=== PATIENT | male | born 1995 | race Caucasian/White ===

== ENCOUNTER 2020-05-10 06:03 | Day surgery (SDC) | payer MEDICAID ==
[2020-05-06 12:49] LABS: BASOPHILS # (AUTO) 0.1 X10'3 (0-0.2); BASOPHILS % (AUTO) 0.8 % (0-1); EOSINOPHILS # (AUTO) 0.1 X10'3 (0-0.9); EOSINOPHILS % (AUTO) 1.2 % (0-6); LYMPHOCYTES # (AUTO) 2.2 X10'3 (1.1-4.8); LYMPHOCYTES % (AUTO) 34.2 % (21-51); MEAN CORPUSCULAR HEMOGLOBIN 31.4 PG (27.0-31.0); MEAN CORPUSCULAR HGB CONC 34.1 g/dL (33.0-36.5); MEAN CORPUSCULAR VOLUME 92.3 FL (78-98); MEAN PLATELET VOLUME 10.2 FL (7.4-10.4); MONOCYTES # (AUTO) 0.6 X10'3 (0-0.9); NEUTROPHILS # (AUTO) 3.5 X10'3 (1.8-7.7); NEUTROPHILS % (AUTO) 53.8 % (42-75); PRE OP HEMATOCRIT 48.9 % (42.0-52.0); PRE OP HEMOGLOBIN 16.7 g/dL (14.0-17.9); PRE OP PLATELET COUNT 217 X10'3 (140-440); RED CELL DISTRIBUTION WIDTH 12.5 % (11.5-14.5)
[2020-05-06 13:01] LABS: ALBUMIN 4.9 G/DL (3.4-5.0); ALBUMIN/GLOBULIN RATIO 1.3 (1.1-1.5); ALKALINE PHOSPHATASE 72 IU/L (46-116); BLOOD UREA NITROGEN 10 MG/DL (7-18); BUN/CREATININE RATIO 10.5 (5.4-32.0); CALCIUM 9.3 MG/DL (8.5-10.1); CHLORIDE 104 MMOL/L (99-107); CREATININE 0.95 MG/DL (0.60-1.10); PRE OP ALT 26 U/L (30-65); PRE OP ANION GAP 8 (8-16); PRE OP AST 15 U/L (10-37); PRE OP BILIRUB, TOTAL 0.5 MG/DL (0.0-1.0); PRE OP GLUCOSE 77 MG/DL (70-104); PRE OP POTASSIUM 4.1 MMOL/L (3.4-5.1); PRE OP SODIUM 141 MMOL/L (135-145); TOTAL CARBON DIOXIDE 29.5 MMOL/L (24-32); TOTAL PROTEIN 8.8 G/DL (6.4-8.2); eGFR > 90 ML/MIN
[2020-05-10] VITALS (7 sets, daily range): BP systolic 112–121; BP diastolic 74–82
[~2020-05-10] VITALS: Ht 172.7 cm; Wt 64.3 kg
[~2020-05-10 06:03] MED LIST: LORA5TAB9 PO; ceFAZolin 1GM/D5W- ADD-VANTAGE 50 ML IV ONE; famotidine 20mg tablet PO ONE; ringers solution, lacted 1,000 ML IV SCH
[2020-05-10] MEDS ORDERED: bacitracin 15gm ointment TP ONE (06:44)
[2020-05-10] MEDS ORDERED: BUPIVAcaine/PF 2.5 mg/ml (0.25%) 30ml vial ONE (06:44)
[2020-05-10] MEDS ORDERED: propofol inj 20 ML IV ONE (06:52)
[2020-05-10] MEDS ORDERED: midazolam 2 mg/2 ml injection ONE (06:52)
[2020-05-10] MEDS ORDERED: fentaNYL/PF 50MCG/1 ML 2ML syringe ONE (06:52)
[2020-05-10] MEDS ORDERED: ringers solution, lacted 1,000 ML IV SCH (06:54)
[2020-05-10] MEDS ORDERED: ondansetron/PF 4mg/2ml inj IV PRN (06:55)
[2020-05-10] MEDS ORDERED: morphine 4 MG/ML inj SYRINge IV PRN (06:55)
[2020-05-10] MEDS ORDERED: morphine 2 MG/ML inj. syringe IV PRN (06:55)
[2020-05-10] MEDS ORDERED: meperidine/PF 25mg/ml syringe IV PRN ×3 (06:55)
[2020-05-10] MEDS ORDERED: proCHLORperazine 10 MG/2 ml inj IV PRN (06:55)
--- NOTE | 2020-05-10 07:45 | NUR ---
Received from OR via , accompanied by Anesthesiologist GABI and report given by Anesthesiolgist. AWAKE IN NO RESP DISTRESS SKIN WARM AND DRY HOB AND FOB ELEVATED, DSG DI, GOOD PEDAL PULSES. VS WNL. NO CO PAIN.
--- NOTE | 2020-05-10 08:45 | NUR ---
AWAKE VS WNL, NO CO PAIN. DSG DI, DISCH INSTR GIVEN TO PT AND MOTHER, UNDERSTOOD. HOME WITH MOM, BELONGINGS SENT WITH PT. ICE TO TOE.
== END 2020-05-10 08:30 | disposition home or self-care (01) ==
LOC: PAS 06:03
PROVIDERS: ATTEND Podiatrist Foot & Ankle Surgery
DX: L60.0 Ingrowing nail (principal); G47.30 Sleep apnea, unspecified; F84.0 Autistic disorder; G43.909 Migraine, unspecified, not intractable, without status migrainosus; Z79.899 Other long term (current) drug therapy; Z11.59 Encounter for screening for other viral diseases
CPT/HCPCS: 11750; 36415; 80053; 85025; 87635; A6222; J0690; J2250; J2704; J3010; J3490; A4215; A4618; A6449; J7120